=== PATIENT | male | born 1955 | race Caucasian/White ===

== ENCOUNTER → 2023-04-19 10:37 | Outpatient (CLI) | payer MEDICARE, OTHER, SELFPAY ==
--- NOTE | 2023-04-19 10:42 | DI.MRI.S_ITS ---
PROCEDURE: MR KNEE RT WO CON INDICATIONS: Unilateral primary osteoarthritis, right knee TECHNIQUE: Noncontrast sagittal PD fast spin echo and T2 fast spin echo with fat saturation, sagittal 3-D FLASH with fat saturation; coronal T1 spin echo and PD fast spin echo with fat saturation, and axial PD fast spin echo with fat saturation through the knee. COMPARISON: [facility], CR, XR KNEE 3 VIEWS RIGHT, 01/10/2023, 7:46. [facility], CR, XR KNEE STANDING BILATERAL, 04/08/2023, 14:46. FINDINGS: Image quality: Excellent. Menisci: There is medial meniscal extrusion and large complex tear of the body and posterior horn of the medial meniscus. The lateral meniscus demonstrate normal morphology and internal signal. The meniscal root ligaments appear intact. Cruciate ligaments: The anterior and posterior cruciate ligaments appear intact. Medial structures: There is grade 1-2 sprain of the medial collateral ligament. The semimembranosus tendon insertions and meniscocapsular junction appear intact. Visualized portions of the pes anserinus tendons appear normal. No abnormal bursal fluid. Lateral structures: The lateral collateral ligament and the biceps femoris tendon appear intact. The popliteus tendon appears normal. Iliotibial band appears normal. Anterior structures: The quadriceps and patellar tendons appear intact. Patellar alignment is normal. No femoral trochlear dysplasia or ventral trochlear prominence. No edema in the infrapatellar fat pad. Bones and cartilage: There is a large osteochondral lesion involving the medial femoral condyle is prominent subchondral edema. Question unstable osteochondral fragment. There is severe cartilage loss in the medial femorotibial compartment with denuded weight-bearing articular surface. Joint space: There is large knee joint effusion. No Darby's cyst. Normal appearing synovial plicae are incidentally noted. IMPRESSION: 1. Medial meniscus extrusion and large complex tear of the body and posterior horn of the medial meniscus. 2. Grade 1-2 sprain of MCL. 3. Large osteochondral lesion involving the medial femoral condyle with possible unstable osteochondral fragment. There is marked subchondral edema in the medial femoral condyle. 4. Severe cartilage loss in the medial femorotibial compartment. 5. Large knee joint effusion. Dictated by: Cameron Soliz M.D. on 04/21/2023 at 10:15 Approved by: Cameron Soliz M.D. on 04/21/2023 at 10:36
== END ==
PROVIDERS: PCP Physician Assistant Medical; Referring Provider Orthopaedic Surgery Foot and Ankle Surgery; Visit Provider Orthopaedic Surgery Foot and Ankle Surgery
DX: S83.231A Complex tear of medial meniscus, current injury, right knee, initial encounter (principal); M17.11 Unilateral primary osteoarthritis, right knee; S83.411A Sprain of medial collateral ligament of right knee, initial encounter; M25.461 Effusion, right knee
CPT/HCPCS: 73721

== ENCOUNTER → 2023-06-17 13:32 | Outpatient (CLI) | payer MEDICARE, OTHER, SELFPAY ==
--- NOTE | 2023-06-18 20:47 | DI.NM.S_ITS ---
DATE OF SERVICE: 06/17/2023 PROCEDURE: Pharmacological perfusion study. INDICATIONS: Atherosclerotic vascular disease, chest pain, preoperative evaluation. RADIOPHARMACEUTICAL: 25.6 millicurie technetium-99m Myoview IV was injected at stress and 25.9 millicurie technetium-99m Myoview IV was injected at rest. CARDIAC STRESS: The patient underwent IV Lexiscan perfusion study under the supervision of an attending staff as per standard protocol. The patient remained hemodynamically stable. Resting blood pressure 115/68. Baseline rhythm was sinus with some repolarization changes. During stress, no convincing new significant ischemic changes. Rare PVCs. No chest pain. Minimal dyspnea during Lexiscan infusion. RAW DATA: There is increased subdiaphragmatic activity. GATED STUDY: Stress LV ejection fraction is 76% without any obvious wall motion abnormalities. Resting end-diastolic volume 107 mL. TID ratio 0.93, which is within normal limits. Lung/heart ratio 0.33, which is within normal limits. MYOCARDIAL PERFUSION SCAN: Stress supine, resting supine and stress prone images were compared to each other. There was no obvious ischemia or infarction. There was normal myocardial perfusion. Summed stress score zero and summed rest score zero. CONCLUSION: I will call this study a normal myocardial perfusion study without any convincing ischemia or infarction. Preserved left ventricular function without any obvious wall motion abnormalities. No significant arrhythmias. Summed stress score is zero, summed rest score zero. Overall, low-risk myocardial perfusion scan. Shmuel Dyson - BHARATH/eder/MADI doc#: [id number]/job#: [id number] dd: 06/18/2023 17:30:00 dt: 06/18/2023 20:34:00 DICTATING MD/COPIES TO: Israel Overton MD COPIES MNE: FERNY;
== END ==
PROVIDERS: PCP Physician Assistant Medical; Referring Provider Internal Medicine Cardiovascular Disease; Visit Provider Internal Medicine Cardiovascular Disease
DX: I25.10 Atherosclerotic heart disease of native coronary artery without angina pectoris (principal)
CPT/HCPCS: 78452; 93017; A9502; J2785